=== PATIENT | male | born 2000 ===

== ENCOUNTER 2022-02-07 01:43 | Emergency (ER) | payer SELFPAY ==
[~2022-02-07] VITALS: Ht 180.4 cm; Wt 63.5 kg
[2022-02-07 02:09] VITALS: BP_SYST 152; BP_SYST 159; BP_SYST 160; BP_DIAS 87; BP_DIAS 94; BP_DIAS 99
--- NOTE | 2022-02-07 02:18 | ED Syncope ---
General Chief Complaint: Dizziness/Syncope Stated Complaint: SEIZURES Source of Information: Patient Exam Limitations: No Limitations History of Present Illness Date Seen by Provider: Feb 07, 2022 Time Seen by Provider: 01:50 Initial Comments Patient to the ER by private conveyance from the bar where he states he was doing some drinking with friends and they are about to go home when he felt a strong feeling of warmth in his face like he was going to pass out his vision started to go out and he says he passed out. He states he thinks his friends caught him before he fell or hit his head. Is not in any pain. No chest pain shortness of air palpitations or weakness. He says this is happened several times in the past and he was worked up in [facility] and then was referred on to a specialist and [place] where he wore a monitor for 2 days. He was told he had palpitations but nothing else. No history of epilepsy. No family or personal medical history. No surgeries. No trauma. He says he feels like his blood pressure was dropping right before he passed out. It happened twice guy ght. No postictal phase. Allergies and Home Medications Allergies Coded Allergies: No Known Drug Allergies (Unverified , 02/07/22) Patient Home Medication List Home Medication List Reviewed: Yes Review of Systems Constitutional: No chills, No diaphoresis EENTM: No ear discharge, No ear pain Respiratory: No cough, No dyspnea on exertion Cardiovascular: see HPI; No chest pain, No Hx of Intervention, No palpitations Gastrointestinal: No abdominal pain, No constipation, No diarrhea, No loss of appetite Genitourinary: No discharge, No dysuria Musculoskeletal: No back pain, No joint pain Skin: No pruritus, No rash All Other Systems Reviewed Negative Unless Noted: Yes Past Ynjzxiu-Sgokoe-Exaopj Hx Patient Social History Tobacco Use?: Yes Tobacco type used: Cigarettes Use of E-Cig and/or Vaping dev: Yes E-Cig or Vaping type used: Nicotine Substance use?: No Alcohol Use?: Yes Alcohol type: Beer Alcohol Frequency: Several times a month Immunizations Up To Date Influenza Vaccine Up-to-Date: No; Not Current Physical Exam Vital Signs Vital Signs - First Documented 02/07/22 02/07/22 01:56 02:54 Temp 36.9 Pulse 106 Resp 16 B/P (MAP) 168/108 (128) Pulse Ox 98 O2 Delivery Room Air Capillary Refill : Height, Weight, BMI Height: '" Weight: lbs. oz. kg; BMI Method: General Appearance: No Apparent Distress, WD/WN HEENT: PERRL/EOMI, TMs Normal (Negative for hemotympanum or grossman sign), Normal ENT Inspection, Pharynx Normal, Moist Mucous Membranes, Other (Atraumatic head) Neck: Full Range of Motion, Normal Inspection Cardiovascular: Regular Rate, Rhythm, No Edema Respiratory: Lungs Clear, Normal Breath Sounds, No Accessory Muscle Use, No Respiratory Distress Gastrointestinal: Normal Bowel Sounds, Non Tender Neurologic/Psychiatric: Alert, Oriented x3, No Motor/Sensory Deficits, Normal Mood/Affect, digital sales director II-XII Norm as Tested Cranial Nerves: Normal Hearing, Normal Speech Coordination/Gait: Normal Gait Motor/Sensory: No Motor Deficit, No Sensory Deficit Skin: Normal Color, Warm/Dry Progress/Results/Core Measures Results/Orders Lab Results Laboratory Tests Test 02/07/22 02:00 02/07/22 02:20 Range/Units White Blood Count 9.5 4.3-11.0 10^3/uL Red Blood Count 5.10 4.30-5.52 10^6/uL Hemoglobin 14.8 13.3-17.7 g/dL Hematocrit 45 40-54 % Mean Corpuscular Volume 88 80-99 fL Mean Corpuscular Hemoglobin 29 25-34 pg Mean Corpuscular Hemoglobin Concent 33 32-36 g/dL Red Cell Distribution Width 12.7 10.0-14.5 % Platelet Count 266 130-400 10^3/uL Mean Platelet Volume 10.7 9.0-12.2 fL Immature Granulocyte % (Auto) 0 % Neutrophils (%) (Auto) 44 42-75 % Lymphocytes (%) (Auto) 49 H 12-44 % Monocytes (%) (Auto) 5 0-12 % Eosinophils (%) (Auto) 1 0-10 % Basophils (%) (Auto) 1 0-10 % Neutrophils # (Auto) 4.2 1.8-7.8 10^3/uL Lymphocytes # (Auto) 4.6 H 1.0-4.0 10^3/uL Monocytes # (Auto) 0.5 0.0-1.0 10^3/uL Eosinophils # (Auto) 0.1 0.0-0.3 10^3/uL Basophils # (Auto) 0.1 0.0-0.1 10^3/uL Immature Granulocyte # (Auto) 0.0 0.0-0.1 10^3/uL Sodium Level 138 135-145 MMOL/L Potassium Level 3.8 3.6-5.0 MMOL/L Chloride Level 105 98-107 MMOL/L Carbon Dioxide Level 21 21-32 MMOL/L Anion Gap 12 5-14 MMOL/L Blood Urea Nitrogen 15 7-18 MG/DL Creatinine 1.06 0.60-1.30 MG/DL Estimat Glomerular Filtration Rate 101 BUN/Creatinine Ratio 14 Glucose Level 118 H 70-105 MG/DL Calcium Level 8.9 8.5-10.1 MG/DL Corrected Calcium 8.5-10.1 MG/DL Total Bilirubin 0.5 0.1-1.0 MG/DL Aspartate Amino Transf (AST/SGOT) 28 5-34 U/L Alanine Aminotransferase (ALT/SGPT) 19 0-55 U/L Alkaline Phosphatase 80 40-136 U/L Troponin I < 0.028 <0.028 NG/ML C-Reactive Protein High Sensitivity 0.13 0.00-0.50 MG/DL Total Protein 7.8 6.4-8.2 GM/DL Albumin 5.0 H 3.2-4.5 GM/DL Serum Alcohol 115 H <10 MG/DL Urine Color YELLOW Urine Clarity CLEAR Urine pH 6.0 5-9 Urine Specific [place] 1.020 1.016-1.022 Urine Protein NEGATIVE NEGATIVE Urine Glucose (UA) NEGATIVE NEGATIVE Urine Ketones NEGATIVE NEGATIVE Urine Nitrite NEGATIVE NEGATIVE Urine Bilirubin NEGATIVE NEGATIVE Urine Urobilinogen 0.2 < = 1.0 MG/DL Urine Leukocyte Esterase NEGATIVE NEGATIVE Urine RBC (Auto) NEGATIVE NEGATIVE Urine RBC NONE /HPF Urine WBC NONE /HPF Urine Crystals NONE /LPF Urine Bacteria NEGATIVE /HPF Urine Casts NONE /LPF Urine Mucus NEGATIVE /LPF Urine Culture Indicated NO Urine Opiates Screen NEGATIVE NEGATIVE Urine Oxycodone Screen NEGATIVE NEGATIVE Urine Methadone Screen NEGATIVE NEGATIVE Urine Propoxyphene Screen NEGATIVE NEGATIVE Urine Barbiturates Screen NEGATIVE NEGATIVE Ur Tricyclic Antidepressants Screen NEGATIVE NEGATIVE Urine Phencyclidine Screen NEGATIVE NEGATIVE Urine Amphetamines Screen NEGATIVE NEGATIVE Urine Methamphetamines Screen NEGATIVE NEGATIVE Urine Benzodiazepines Screen NEGATIVE NEGATIVE Urine Cocaine Screen NEGATIVE NEGATIVE Urine Cannabinoids Screen NEGATIVE NEGATIVE My Orders Orders - KAREN,NGOC J Orthostatic Vital Signs (Adult (02/07/22 02:11) Ekg Tracing (02/07/22 02:11) Continuous Ekg Monitoring (02/07/22 02:11) Troponin I [place] (02/07/22 02:11) Cbc With Automated Diff (02/07/22 02:11) Comprehensive Metabolic Panel (02/07/22 02:11) Hs C Reactive Protein (02/07/22 02:11) Alcohol (02/07/22 02:11) Ua Culture If Indicated (02/07/22 02:11) Drug Screen Stat (Urine) (02/07/22 02:11) Ed Iv/Invasive Line Start (02/07/22 02:20) Lactated Ringers (Lr 1000 Ml Iv Solution (02/07/22 02:30) Chest 1 View, Ap/Pa Only (02/07/22 02:20) Medications Given in ED Vital Signs/I&O 02/07/22 02/07/22 02/07/22 01:56 02:09 02:54 Temp 36.9 Pulse 106 111 105 115 120 Resp 16 16 B/P (MAP) 168/108 (128) 152/87 (108) 160/99 159/94 (115) 160/99 (119) Pulse Ox 98 100 O2 Delivery Room Air Room Air Blood Pressure Mean: 119 Progress Progress Note #1: Time: 02:17 Progress Note Patient describes what sounds like syncope. You may have already had some cardiac work-up for it. He has been drinking so dehydration or hypovolemia is possible. We will give him a liter of fluids. Orthostatic vital signs were unremarkable. Will collect EKG and some blood work as well as urinalysis and an alcohol level. We will also give him referral to cardiology for further outpatient work-up if he would like. We discussed other possible etiologies of his presentation and how to work them up outpatient Progress Note #2: Time: 02:42 Progress Note Mellott syncope score: Very low risk. 0.4% risk of 30-day serious adverse event Initial ECG Impression Date: Feb 07, 2022 Initial ECG Impression Time: 02:03 Initial ECG Rate: 108 Initial ECG Rhythm: Normal Sinus, S.Tach Initial ECG Intervals: Normal Initial ECG Impression: Normal Initial ECG Comparisson: No Previous ECG Available Comment Sinus tachycardia without clinically relevant ST elevation or depression. Diagnostic Imaging Diagonstic Imaging: Xray Plain Films/CT/US/NM/MRI: chest Comments No acute cardiopulmonary process on 1 view chest x-ray. [facility] [place] NAME: COURTNEY POWERS [facility] REC#: [id number] PT STATUS: DEP ER : 2000 PHYSICIAN: NGOC JONES MD ADMIT DATE: 02/07/22/ER Signed Date of Exam:02/07/22 CHEST 1 VIEW, AP/PA ONLY PATIENT HISTORY: syncope. TECHNIQUE: Single frontal view of the chest. COMPARISON: None FINDINGS: The lung volumes are large. No focal consolidation is seen. No large pleural effusion or pneumothorax is seen. The cardiomediastinal silhouette is normal in size and contour. No acute osseous abnormality is seen. IMPRESSION: No acute pulmonary abnormality seen. Dictated by: Dictated on workstation # [id number] Dict: 02/07/22630 Trans: 02/07/22 0939 [facility] [id number] Interpreted by: MICHEL HYLTON MD Electronically signed by: MICHEL HYLTON MD 02/07/22 0939 Reviewed: Reviewed by Me Departure Impression Primary Impression: Syncope Qualified Codes: R55 - Syncope and collapse Disposition: 01 HOME, SELF-CARE Condition: Stable Departure-Patient Inst. Decision time for Depature: 02:43 Referrals: HANNAH MARQUEZ MD FACP FAC CCDS NO,LOCAL PHYSICIAN (PCP) Primary Care Physician Patient Instructions: Syncope (Fainting) (DC) Add. Discharge Instructions: I think you passed out tonight due to vasovagal syncope. It would be reasonable to follow-up with Dr. Marquez, cardiology to rule out any other reasons that might be dangerous for people to pass out. Make sure you are drinking more fluids. For every alcoholic drink you might consider drinking a glass of water. Return to the ER if you are having chest pain or shortness of air. Call Dr. Marquez's clinic on Tuesday and make a follow-up appointment in the next couple weeks for reexamination as well as to review outside records if available. All discharge instructions reviewed with patient and/or family. Voiced understanding. Copy Copies To 1: HANNAH MARQUEZ MD FACP FACC CCDS NGOC JONES Feb 07, 2022 02:18
[2022-02-07 02:20] LABS: BASOPHILS # (AUTO) 0.1 10^3/uL (0.0-0.1); BASOPHILS % (AUTO) 1 % (0-10); EOSINOPHILS # (AUTO) 0.1 10^3/uL (0.0-0.3); EOSINOPHILS % (AUTO) 1 % (0-10); HEMATOCRIT 45 % (40-54); HEMOGLOBIN 14.8 g/dL (13.3-17.7); LYMPHOCYTES # (AUTO) 4.6 10^3/uL (1.0-4.0); LYMPHOCYTES % (AUTO) 49 % (12-44); MEAN CORPUSCULAR HEMOGLOBIN 29 pg (25-34); MEAN CORPUSCULAR HGB CONC 33 g/dL (32-36); MEAN CORPUSCULAR VOLUME 88 fL (80-99); MEAN PLATELET VOLUME 10.7 fL (9.0-12.2); MONOCYTES # (AUTO) 0.5 10^3/uL (0.0-1.0); MONOCYTES % (AUTO) 5 % (0-12); NEUTROPHILS # (AUTO) 4.2 10^3/uL (1.8-7.8); NEUTROPHILS % (AUTO) 44 % (42-75); PLATELET COUNT 266 10^3/uL (130-400); WHITE BLOOD COUNT 9.5 10^3/uL (4.3-11.0)
[2022-02-07 02:23] LABS: CHLORIDE 105 MMOL/L (98-107); POTASSIUM 3.8 MMOL/L (3.6-5.0); SODIUM 138 MMOL/L (135-145)
[2022-02-07 02:25] LABS: CALCIUM 8.9 MG/DL (8.5-10.1)
[2022-02-07 02:25] LABS: BILIRUBIN,URINE NEGATIVE (NEGATIVE); CLARITY,URINE CLEAR; COLOR,URINE YELLOW; GLUCOSE, URINE (UA) NEGATIVE (NEGATIVE); KETONES,URINE NEGATIVE (NEGATIVE); LEUKOCYTE ESTERASE ,URINE NEGATIVE (NEGATIVE); NITRITE,URINE NEGATIVE (NEGATIVE); PROTEIN,URINE NEGATIVE (NEGATIVE)
[2022-02-07 02:26] LABS: GLUCOSE 118 MG/DL (70-105); TOTAL PROTEIN 7.8 GM/DL (6.4-8.2)
[2022-02-07 02:27] LABS: CARBON DIOXIDE 21 MMOL/L (21-32)
[2022-02-07 02:28] LABS: BILIRUBIN,TOTAL 0.5 MG/DL (0.1-1.0)
[2022-02-07 02:29] LABS: ALKALINE PHOSPHATASE 80 U/L (40-136)
[2022-02-07 02:30] LABS: CREATININE SERUM 1.06 MG/DL (0.60-1.30); GFR ESTIMATED 101
[2022-02-07] MEDS ORDERED: LACTATED RINGERS 1,000 ML IV ONE (02:30)
[2022-02-07 02:31] LABS: BUN/CREATININE RATIO 14
[2022-02-07 02:33] LABS: ALANINE AMINOTRANSFERASE 19 U/L (0-55)
[2022-02-07 02:33] LABS: BACTERIA,URINE NEGATIVE /HPF
[2022-02-07 02:37] LABS: AMPHETAMINE SCREEN, URINE NEGATIVE (NEGATIVE); BARBITURATE SCREEN URINE NEGATIVE (NEGATIVE); BENZODIAZEPINES SCREEN URINE NEGATIVE (NEGATIVE); CANNABINOID SCREEN, URINE NEGATIVE (NEGATIVE); COCAINE SCREEN URINE NEGATIVE (NEGATIVE); METHADONE STAT NEGATIVE (NEGATIVE); METHAMPHETAMINE SCREEN URINE S NEGATIVE (NEGATIVE); OPIATE SCREEN URINE NEGATIVE (NEGATIVE); OXYCODONE STAT NEGATIVE (NEGATIVE); PROPOXYPHENE STAT NEGATIVE (NEGATIVE); TRICYCLIC ANTIDEPRESSANTS SCRE NEGATIVE (NEGATIVE)
[2022-02-07 02:54] VITALS: BP 160/99
--- NOTE | 2022-02-07 06:42 | Diagnostic Imaging Report ---
PATIENT HISTORY: syncope. TECHNIQUE: Single frontal view of the chest. COMPARISON: None FINDINGS: The lung volumes are large. No focal consolidation is seen. No large pleural effusion or pneumothorax is seen. The cardiomediastinal silhouette is normal in size and contour. No acute osseous abnormality is seen. IMPRESSION: No acute pulmonary abnormality seen. Dictated by: Dictated on workstation # [id number]
== END 2022-02-07 03:02 | disposition home or self-care (01) ==
LOC: ER 01:47
DX: R55 Syncope and collapse (principal); Z72.0 Tobacco use
CPT/HCPCS: 71045; 80053; 80306; 81000; 84484; 85025; 86141; 93005; 99284; G0480; 36415; 80320